=== PATIENT | male | born 1965 | race African-American/Black ===

== ENCOUNTER 2020-05-10 17:28 | Emergency (ER) | payer OTHER, SELFPAY ==
[~2020-05-10 17:28] MED LIST: Iopamidol-370 76% 500 ML 1 ML ONE
[2020-05-10] MEDS ORDERED: Aspirin Chewable 81 MG TAB ONE (19:13)
[2020-05-10] MEDS ORDERED: Amlodipine 5 MG TAB ONE (19:52)
== END 2020-05-10 21:30 | disposition home or self-care (01) ==
LOC: ERS 17:28
DX: R05 Cough (principal); R03.0 Elevated blood-pressure reading, without diagnosis of hypertension
CPT/HCPCS: 36415; 71046; 71275; 80053; 83880; 84484; 85025; 87635; 93005; Q9967; U0003; U0005

== ENCOUNTER 2020-08-07 13:07 | Outpatient (CLI) | payer OTHER | END 2020-08-07 13:08 | disposition home or self-care (01) | LOC: RAD-FRANK 13:07 | PROVIDERS: ATTEND Nurse Practitioner Family | DX: R05 Cough (principal) | CPT/HCPCS: 71046 ==

== ENCOUNTER 2024-01-07 08:46 | Emergency (ER) | payer BC, OTHER ==
[2024-01-07] MEDS ORDERED: Proparacaine 0.5% Opth 15 ML BOT ONE (10:32)
[2024-01-07] MEDS ORDERED: Fluorescein Opthalmic Strip ONE (10:32)
== END 2024-01-07 16:11 | disposition home or self-care (01) ==
LOC: ERS 08:46
DX: S02.31XA Fracture of orbital floor, right side, initial encounter for closed fracture (principal); S01.111A Laceration without foreign body of right eyelid and periocular area, initial encounter; W25.XXXA Contact with sharp glass, initial encounter
CPT/HCPCS: 70486